=== PATIENT | male | born 1980 | race Caucasian/White ===

== ENCOUNTER 2023-09-08 20:38 | Emergency (ER) | payer BC, SELFPAY ==
[2023-09-08 20:43] VITALS: BP 121/86; PULSE 111; RESP 20; TEMP 37.3; O2SAT 97; BMI 26.7
--- NOTE | 2023-09-08 21:09 | CT_ITS ---
Final Report Patient: SAVANA GONZALES [facility] [place] Facility:?[facility] Patient ID:?[id number] Site Patient ID:?[id number]. Site :?[id number] Study:?CT Abdomen/Pelvis W/ 80CC ISOVUE 370-09/08/2023 9:35:38 PM Ordering Physician:ANTHONY Final Report: INDICATION: Diffuse abdominal pain. TECHNIQUE: CT abdomen and pelvis acquired with 80 cc Isovue 370 IV contrast. COMPARISON: None. FINDINGS: Lower chest: Unremarkable. Liver: Unremarkable. Normal in size and attenuation. No suspicious masses. Gallbladder and bile ducts: Cholecystectomy. Pancreas: Unremarkable. No mass or inflammation. Spleen: Few splenic calcifications.. Normal in size. No masses. Adrenal glands: Unremarkable. No nodules. Kidneys: Multiple left-sided simple renal sinus cysts. Small 4 millimeter nonobstructing left renal stone. Additional punctate nonobstructing right renal stone. No suspicious masses, or hydronephrosis. GI tract: Mild sigmoid colonic and rectal wall thickening accentuated by nondistention. Normal in caliber. No sign of mass or inflammation. Normal appendix. Vasculature: Abdominal aorta is normal in caliber. Mesenteric arteries are patent. Lymph nodes: No lymphadenopathy. Peritoneum/Abdominal Wall: Tiny fat containing umbilical hernia. No sign of mass or infiltration. No free air or significant free fluid. Pelvis: Unremarkable. Bones: Unremarkable for age. IMPRESSION: Mild sigmoid colonic and rectal wall thickening accentuated by nondistention. Low-grade proctocolitis not excluded. Otherwise, no acute intra-abdominal/pelvic abnormality. Please note that all CT scans at this facility use dose modulation, iterative reconstruction, and/or weight-based dosing when appropriate to reduce radiation dose to as low as reasonably achievable. Dictated by Anthony Patel MD @ 09/08/2023 9:41:48 PM (Electronic Signature)
[2023-09-08] MEDS: ONDANSETRON 2 MG/ML inj 4 MG IVP (21:30)
[2023-09-08] MEDS: LACTATED RINGERS 1000 ML 1,000 ML IV (21:30)
[2023-09-08] MEDS: MORPHINE 4 MG/ML INJ IVP (21:30)
--- NOTE | 2023-09-08 21:30 | ED_ITS ---
HPI - Nausea/Vomiting/Diarrhea General Date Seen: 09/08/23 Chief complaint: Nausea/Vomiting Stated complaint: Vomiting, diarhea, weakness Time Seen by Provider: 09/08/23 20:53 Source: patient Mode of arrival: ambulatory Limitations: no limitations History of Present Illness HPI Narrative: Patient is a 43-year-old male with no pertinent medical problems presenting to the emergency department for nausea, vomiting, diarrhea. States symptoms started yesterday around 14:00. Since then he has had over 30 episodes of watery diarrhea he states. Has also been vomiting quite a bit. Has not been able to keep anything down. He states he started to feel dehydrated. Went to urgent care today at 14:00 was given a L of fluids and discharged home with Zofran. He was still feeling 2nd to that was unable to take the Zofran without vomiting so he came to the emergency department. Denies ever having symptoms like this. Denies any history of C diff. Has had no recent antibiotic use. No recent travel. Denies fevers, chills, chest pain, shortness of breath, numbness. Feels fatigued. Does have diffuse abdominal pain of see says started after all the vomiting. Related Data Previous Rx's Medication Instructions Recorded ondansetron 4 mg disintegrating 4 mg PO Q6H PRN nausea and 09/08/23 tablet vomiting #30 tabs Allergies Allergy/AdvReac Type Severity Reaction Status Date / Time shellfish Allergy Severe Uncoded 09/08/23 21:37 Review of Systems Status of ROS: Reports: 10 or more systems reviewed and unremarkable except as noted in History and below Exam Narrative: Exam Narrative: Const: Well-nourished, Well-developed, in moderate distress Eyes: PERRL, no conjunctival injection, and symmetrical lids HENT: Atraumatic external nose and ears. Moist mucous membranes. Neck: Symmetric, trachea midline, No thyromegaly. CVS: RRR, No murmurs or gallops. Peripheral pulses 2+ and equal in all extre mities RESP: Unlabored respiratory effort. Clear to auscultation bilaterally. GI: Diffuse mild abdominal tenderness, Nondistended, No rebound or guarding. MSK:Extremities w/o deformity, Normal Active ROM Skin: Warm, Dry. No rashes or lesions. Neuro: Normal Muscle tone, No focal neurological deficits. Psych: Awake, Alert, & Oriented x3. Appropriate mood and affect. Const: Vital Signs, click to edit/add: Vital Signs - 24 hr 09/08/23 20:43 Temperature 99.1 F Pulse Rate [Pulse Oximeter] 111 H Respiratory Rate 20 Blood Pressure [Ri ght Upper Arm] 121/86 Pulse Oximetry 97 Oxygen Delivery Me thod Room Air Course Vital Signs Vital signs: Initial Vital Signs Temperature 99.1 F 09/08/23 20:43 Temperature Source Temporal Artery Scan 09/08/23 20:43 Pulse Rate 111 H 09/08/23 20:43 Respiratory Rate 20 09/08/23 20:43 Blood Pressure 121/86 09/08/23 20:43 Blood Pressure Mean 97 09/08/23 20:43 Blood Pressure Position Sitting 09/08/23 20:43 Pulse Oximetry 97 09/08/23 20:43 Oxygen Delivery Method Room Air 09/08/23 20:43 Vital Signs Temperature 99.1 F 09/08/23 20:43 Pulse Rate 111 H 09/08/23 20:43 Respiratory Rate 20 09/08/23 20:43 Blood Pressure 121/86 09/08/23 20:43 Pulse Oximetry 97 09/08/23 20:43 Oxygen Delivery Method Room Air 09/08/23 20:43 Temperature 99.1 F 09/08/23 20:43 Pulse Rate 111 H 09/08/23 20:43 Respiratory Rate 20 09/08/23 20:43 Blood Pressure 121/86 09/08/23 20:43 Pulse Oximetry 97 09/08/23 20:43 Oxygen Delivery Method Room Air 09/08/23 20:43 MDM - Nausea/Vomiting/Diarrhea MDM Narrative Medical decision making narrative: Patient is a 43-year-old male presenting to the emergency department for nausea/vomiting/diarrhea. No history of C diff. we will test him for C diff due to the amount of episodes of watery diarrhea he has had. Does state he has been going so often he has noticed some blood in his stool now. Also given 1 L fluids and some morphine for pain and Zofran for nausea. Lipase ordered to look for signs of pancreatitis. CBCs, CMP, lactate, urinalysis, COVID/flu/RSV test ordered. Will also order CT scan of the abdomen and pelvis Patient's lab work returned showing no concerning abnormalities. COVID/flu/RSV test is negative. CT scan of the abdomen pelvis was done reviewed by myself and the radiologist shows mild sigmoid colonic and rectal wall thickening but no distension. Possibly low-grade proctocolitis. No other acute intra-abdominal or pelvic abnormalities. Heart rate has improved. His C diff test came back negative. Patient appears stable at this time. Symptoms are most likely viral colitis. He will be discharged home. Lab Data Labs: Lab Results 09/08/23 09/08/23 09/08/23 Range/Units 20:51 21:27 22:32 WBC 8.62 (4.50-11.00) K/uL RBC 5.12 (4.30-5.90) m/uL Hgb 16.1 (13.5-17.5) gm/dL Hct 45.9 (37.0-53.0) % MCV 90 (80-100) fL MCH 31 (26-34) pg MCHC 35 (32-36) gm/dL RDW Coeff of Alonso 11.7 (11.5-15.5) % Plt Count 245 (140-440) K/uL Neut % (Auto) 82.5 H (42.0-72.0) % Lymph % (Auto) 12.9 L (20-44) % [place] % (Auto) 3.9 (0.0-11.0) % Eos % (Auto) 0.3 (0.0-7.0) % Baso % (Auto) 0.2 (0.0-3.0) % Neut # (Auto) 7.10 H (1.7-7.0) K/uL Lymph # (Auto) 1.10 (0.90-2.90) K/uL [place] # (Auto) 0.30 (0.00-0.90) K/UL Eos # (Auto) 0.03 (0.00-0.50) K/uL Baso # (Auto) 0.02 (0.00-0.30) K/uL Abs Immat Gran (auto) 0.02 (0.00-0.30) K/uL Imm/Tot Granulo (auto) 0.2 % Sodium 137 (135-149) mmol/L Potassium 3.6 (3.6-5.1) mmol/L Chloride 107 (96-114) mmol/L Carbon Dioxide 20 (20-32) mmol/L Anion Gap 10 (7-15) mEq/L BUN 13 (5-24) mg/dL Creatinine 0.9 (0.5-1.5) mg/dL Estimated Creat Clear 107.02 Estimated GFR 107 ml/min Glucose 117 H (60-115) mg/dL Lactate 0.9 (0.5-1.9) mmol/L Calcium 8.5 (8.4-10.6) mg/dL Total Bilirubin 1.6 H (0.1-1.5) mg/dL AST 23 (12-35) U/L ALT 40 (4-50) U/L Alkaline Phosphatase 61 (40-150) U/L Total Protein 7.2 (6.0-8.3) g/dL Albumin 4.0 (3.3-5.0) g/dL Lipase 29 (23-300) U/L Stl C. diff Tox B Gene Negative (Negative) Stl C. diff [id number] Presumptive Negative (Negative) SARS-CoV-2 (PCR) Negative SARS-CoV-2 (Negative) Influenza Type A (PCR) Negative PCR FLU A (Negative) Influenza Type B (PCR) Negative PCR FLU B (Negative) RSV (PCR) Negative PCR RSV (Negative) Imaging Data CT scan abdomen pelvis: Radiologist's impression: Mild sigmoid colonic and rectal wall thickening accentuated by nondistention. Low-grade proctocolitis not excluded. Otherwise, no acute intra-abdominal/pelvic abnormality. Please note that all CT scans at this facility use dose modulation, iterative reconstruction, and/or weight-based dosing when appropriate to reduce radiation dose to as low as reasonably achievable. Dictated by Anthony Patel MD @ 09/08/2023 9:41:48 PM Discharge Plan Discharge Clinical Impression: Gastroenteritis and colitis, viral Patient Disposition: Home, Self-Care Condition: Improved Instructions: Acute Nausea and Vomiting (DC), Acute Diarrhea (ED) Additional Instructions: Make she take the Zofran as soon as he started feeling nauseated. This appears to be viral in nature and will need to pass on its own. Stay well hydrated. Return to emergency department for new or worsening symptoms Prescriptions: No Action ondansetron 4 mg tablet,disintegrating 4 mg PO Q6H PRN (Reason: nausea and vomiting) Qty: 30 0RF Follow Up/Referrals: Provider,Not a Local [Primary Care Provider] - Stand Alone Forms: MyHealth Info Instructions
[2023-09-08 21:34] LABS: PCR FLU A Negative PCR FLU A (Negative); PCR FLU B Negative PCR FLU B (Negative); PCR RSV Negative PCR RSV (Negative); SARS PCR* Negative SARS-CoV-2 (Negative)
[2023-09-08 21:37] LABS: Basophils Absolute Auto 0.02 K/uL (0.00-0.30); Basophils Percent Auto 0.2 % (0.0-3.0); Eosinophils Absolute Auto 0.03 K/uL (0.00-0.50); Eosinophils Percent Auto 0.3 % (0.0-7.0); Hematocrit 45.9 % (37.0-53.0); Hemoglobin* 16.1 gm/dL (13.5-17.5); Immature Granulocytes Abs Auto 0.02 K/uL (0.00-0.30); Immature Granulocytes Pct Auto 0.2 %; Lymphocytes Percent Auto 12.9 % (20-44); Mean Corpuscular HGB Conc 35 gm/dL (32-36); Mean Corpuscular Hemoglobin 31 pg (26-34); Mean Corpuscular Volume 90 fL (80-100); Monocytes Percent Auto 3.9 % (0.0-11.0); Neutrophils Percent Auto 82.5 % (42.0-72.0); Platelet Count* 245 K/uL (140-440); RDW Coefficient of Variation % 11.7 % (11.5-15.5); Red Blood Count 5.12 m/uL (4.30-5.90); White Blood Count* 8.62 K/uL (4.50-11.00)
[2023-09-08 21:38] LABS: Lactate* 0.9 mmol/L (0.5-1.9)
[2023-09-08 21:42] LABS: Slide Review Reflex No
[2023-09-08 21:57] LABS: Chloride* 107 mmol/L (96-114); Potassium* 3.6 mmol/L (3.6-5.1); Sodium* 137 mmol/L (135-149)
[2023-09-08 21:59] LABS: Creatinine* 0.9 mg/dL (0.5-1.5); Est. Creatinine Clearance* 107.02; Estimated Glomerular Filt Rate 107 ml/min
[2023-09-08 22:00] LABS: Alanine Aminotransferase* 40 U/L (4-50); Alkaline Phosphatase* 61 U/L (40-150); Anion Gap 10 mEq/L (7-15); Aspartate Amino Transferase* 23 U/L (12-35); Bilirubin Total* 1.6 mg/dL (0.1-1.5); Blood Urea Nitrogen* 13 mg/dL (5-24); Carbon Dioxide* 20 mmol/L (20-32); Glucose* 117 mg/dL (60-115); Lipase* 29 U/L (23-300); Total Protein* 7.2 g/dL (6.0-8.3)
[2023-09-08 22:01] LABS: Calcium* 8.5 mg/dL (8.4-10.6)
[2023-09-08 22:43] LABS: Appearance Urine Clear (Clear); Bilirubin Urine Negative (Negative); Blood Urine Trace-intact (Negative); Color Urine Yellow (Yellow); Glucose Urine Negative (Negative); Ketones Urine Negative (Negative); Leukocyte Esterase Urine Negative (Negative); Nitrite Urine Negative (Negative); Protein Urine Negative (Negative); Urobilinogen Urine 0.2 (0.2-1.0); pH Urine 6.5 (5.0-8.5)
[2023-09-08 23:30] LABS: C.Difficile Negative (Negative)
[2023-09-08 23:41] LABS: CDIFFEPI 027 Presumptive Negative (Negative)
[2023-09-09 00:14] LABS: RBC Urine 0-2 (0-2); Squamous Epithelial Cell Urine Few (None-Few); WBC Urine 0-2 (0-5)
== END 2023-09-08 23:59 | disposition home or self-care (01) ==
PROVIDERS: Family Medicine; Emergency Provider Student in an Organized Health Care Education/Training Program
DX: K52.9 Noninfective gastroenteritis and colitis, unspecified (principal)
CPT/HCPCS: 36415; 74177; 80053; 81001; 83605; 83690; 85025; 87493; 87631; 99283; 99284; J2270; J2405; J7120; Q9967

== ENCOUNTER 2024-06-11 20:15 | Emergency (ER) | payer OTHER, BC, SELFPAY ==
[2024-06-11 20:23] VITALS: BP 156/103; PULSE 96; RESP 16; TEMP 37; O2SAT 98; BMI 27.3
--- NOTE | 2024-06-11 20:33 | ED_ITS ---
HPI - General Adult General Date Seen: 06/11/24 Chief complaint: Abdominal Pain Stated complaint: possible hernia Time Seen by Provider: 06/11/24 20:25 History of Present Illness HPI narrative: This is a 44-year-old generally healthy male presenting to the ER today with left groin pain. He started having pain yesterday while bending down in his shower he started experiencing a achy burning pain in his left groin. When bending over he felt apop has since then has felt a pop and a bulge in that area. He was able to laid down in bed and was able to push on that area and felt the bulge in his groin slide back in. Since then he has been having some achy burning pain in the groin and whenever he is up and around he feels a bulge in the groin. He has been able to slide it back and when he lays down but he can slide and while he is standing up. He is not having any fever. No vomiting. Bowel movements have been normal. Urination normal. No pain down into the testicle but sometimes the pain radiates from the groin down into the medial aspect of the left thigh and sometimes it radiates up into the left lower quadrant. No flank pain. Related Data Previous Rx's ?Medication ?Instructions ?Recorded ondansetron 4 mg disintegrating 4 mg PO Q6H PRN nausea and 09/08/23 tablet vomiting #30 tabs Allergies Allergy/AdvReac Type Severity Reaction Status Date / Time shellfish Allergy Severe Uncoded 09/08/23 21:37 PFSH PFSH Social History Non-prescribed substance use: denies use Exam Narrative: Exam Narrative: Constitutional: Appears well-developed and well-nourished. Alert. Conversant. Non toxic. HENT: Head: Atraumatic. Nose: Nose normal. Mouth/Throat: Oral mucosa is clear and moist. no trismus. Eyes: Conjunctivae normal. EOM normal. Pupils equal, round, and reactive to light. No scleral icterus. Neck: Normal range of motion. Neck supple. No tracheal deviation present. Cardiovascular: Normal rate, regular rhythm. No gallop. No friction rub. No murmur heard. Symmetric radial artery pulses Pulmonary/Chest: Effort normal. No stridor. No respiratory distress. No wheezes. No rales. No rhonchi Abdominal: Soft. Bowel sounds normal. No distension. No mass. No tenderness. No rebound. No guarding. : Normal uncircumcised penis. Normal testicles and scrotum. No testicular pain. No palpable inguinal adenopathy. With the patient supine I do not palpate any bulging hernia in the left inguinal canal. I had the patient stand up and this did create a visible and palpable bulging hernia and left inguinal canal. I the patient repositioned his to supine and we were able to gently manipulate the hernia back into the abdomen. The visible and palpable bulge resolved. Musculoskeletal: RUE: Normal range of motion. No tenderness. No deformity LUE: Normal range of motion. No tenderness. No deformity RLE: Normal range of motion. No edema. No tenderness. No deformity LLE: Normal range of motion. No edema. No tenderness. No deformity Lymph: No inguinal adenopathy. Neurological: Alert and oriented to person, place, and time. Normal strength. CN II-VII intact. No sensory deficit. GCS eye subscore is 4. GCS verbal subscore is 5. GCS motor subscore is 6. Normal coordination Skin: Skin is warm and dry. No rash noted. No pallor. Normal capillary refill. Psychiatric: Normal mood. Normal affect. Const: Vital Signs, click to edit/add: Vital Signs - 24 hr 06/11/24 20:23 Temperature 98.6 F Pulse Rate [Pulse Oximeter] 96 Respiratory Rate 16 Blood Pressure [Le ft Upper Arm] 156/103 H Pulse Oximetry 98 Oxygen Delivery Me thod Room Air Course Vital Signs Vital signs: Initial Vital Signs Temperature 98.6 F 06/11/24 20:23 Temperature Source Temporal Artery Scan 06/11/24 20:23 Pulse Rate 96 06/11/24 20:23 Respiratory Rate 16 06/11/24 20:23 Blood Pressure 156/103 H 06/11/24 20:23 Blood Pressure Mean 120 H 06/11/24 20:23 Blood Pressure Position Sitting 06/11/24 20:23 Pulse Oximetry 98 06/11/24 20:23 Oxygen Delivery Method Room Air 06/11/24 20:23 Vital Signs Temperature 98.6 F 06/11/24 20:23 Pulse Rate 96 06/11/24 20:23 Respiratory Rate 16 06/11/24 20:23 Blood Pressure 156/103 H 06/11/24 20:23 Pulse Oximetry 98 06/11/24 20:23 Oxygen Delivery Method Room Air 06/11/24 20:23 Temperature 98.6 F 06/11/24 20:23 Pulse Rate 96 06/11/24 20:23 Respiratory Rate 16 06/11/24 20:23 Blood Pressure 156/103 H 06/11/24 20:23 Pulse Oximetry 98 06/11/24 20:23 Oxygen Delivery Method Room Air 06/11/24 20:23 Medical Decision Making MDM Narrative Medical decision making narrative: Very pleasant 44-year-old male presenting to the ER today with left groin pain that started yesterday while he was bending over in the shower. He gives a history highly suggestive for an inguinal hernia in that area. Physical exam also confirms the presence of a lack wiggle hernia. Fortunately this is a sliding hernia. No evidence for incarceration, obstruction, or other immediate surgical emergency. Differential is broad. At this point I do not see any evidence for testicular pathology such as scrotal abscess, testicular torsion, epididymitis, orchitis. He is not having any pain through to the flank or other symptoms to suggest kidney stone. No signs of limb ischemia suggest an acute vascular catastrophe involving the left iliac artery, hematoma. At this time, I do not think he requires laboratory workup or CT imaging. I had a detailed discussion about the inguinal hernia and the potential complications with the patient and her . We carefully reviewed precautions for ER return and the indication for potential emergent surgical conditions. Patient will follow-up outpatient with surgery Clinic as soon as possible for evaluation and likely surgical repair. Discharge Plan Discharge Clinical Impression: Hernia, inguinal, left Instructions: Inguinal Hernia (ED) Additional Instructions: As we discussed, return to the ER right away if you have any concerns- especially if you experience worsening pain, generalized abdominal pain, vomiting, or if you have a painful lump that you cannot get to go away. Please follow-up with the [facility] surgery clinic as soon as you are able. Call the clinic tomorrow morning to arrange an ER follow-up appointment. Call [phone] to speak with the clinic schedulers. Tell the operations scheduler that you need an ER follow-up visit for a sliding left inguinal hernia. You can tell them that you were in the ER and that we did not find incarceration or obstruct ion tonight. Prescriptions: No Action ondansetron 4 mg tablet,disintegrating 4 mg PO Q6H PRN (Reason: nausea and vomiting) Qty: 30 0RF Follow Up/Referrals: Provider,Not a Local [Primary Care Provider] - Stand Alone Forms: [employer] Info Instructions
== END 2024-06-11 21:22 | disposition home or self-care (01) ==
PROVIDERS: Emergency Provider Emergency Medicine
DX: K40.90 Unilateral inguinal hernia, without obstruction or gangrene, not specified as recurrent (principal)
CPT/HCPCS: 99282; 99283

== ENCOUNTER 2024-06-30 16:31 | Emergency (ER) | payer OTHER, BC, SELFPAY ==
[2024-06-30 16:34] VITALS: BP 166/101; PULSE 108; RESP 16; TEMP 36.7; O2SAT 99; BMI 26.5
--- NOTE | 2024-06-30 17:05 | ED.GENADULT ---
HPI - General Adult General Date Seen: 06/30/24 Chief complaint: Abdominal Pain Stated complaint: blood in stool Time Seen by Provider: 06/30/24 16:34 Source: patient History of Present Illness HPI narrative: Patient is a 44-year-old male who underwent hernia surgery a week ago at [facility]. He had some constipation postoperatively but says he was given medication which relieved that. He says he normally has a bowel movement 2 or 3 times a day. For the past 3 days, he has noted bright red blood usually with 2 of the 3 bowel movements. He does not have any abdominal pain, has not had vomiting. He is eating okay. He has not had rectal pain. He has not had diarrhea or black stools. No fevers or systemic complaints. He says he talked to his surgeon who recommended that he be seen in the ER. He has had normal colonoscopies prior to this. Related Data Home Medications ?Medication ?Instructions ?Recorded ?Confirmed epinephrine 0.3 mg/0.3 mL IM 06/30/24 injection, auto-injector Previous Rx's ?Medication ?Instructions ?Recorded ondansetron 4 mg disintegrating 4 mg PO Q6H PRN nausea and 09/08/23 tablet vomiting #30 tabs Allergies Allergy/AdvReac Type Severity Reaction Status Date / Time Iodinated Contrast Media Allergy Unknown Verified 06/30/24 16:40 shellfish Allergy Severe Uncoded 09/08/23 21:37 Review of Systems Status of ROS: Reports: 10 or more systems reviewed and unremarkable except as noted in History and below [facility] Social History Non-prescribed substance use: denies use Exam Narrative: Exam Narrative: Vital signs reviewed In general, alert, nontoxic Head: Normocephalic, atraumatic. Eyes: Sclera clear. Pupils equal and reactive. ENT: Mucous membranes moist. Neck: Supple without adenopathy. Heart: Regular rate and rhythm without murmur. Lungs: Clear. No increased work of breathing, crackles or wheezes. Abdomen: Soft, nondistended. Incisions are well healed. No surrounding erythema, abdomen is nontender to palpation. Rectal: No large external hemorrhoids, no visible fissure. No masses. Clean glove without evidence of blood or melena. Extremities: Well perfused, pulses intact. No significant edema. Neurologic: Alert, conversant. Speech fluent, face symmetric. Moves all extremities equally. Skin: Warm, dry well perfused. Affect: Normal. Const: Vital Signs, click to edit/add: Vital Signs - 24 hr 06/30/24 16:34 06/30/24 17:12 06/30/24 18:00 Temperature 98.1 F Pulse Rate 85 Pulse Rate [Pulse Oximeter] 108 H 97 Respiratory Rate 16 Blood Pressure Blood Pressure [Ri ght Upper Arm] 166/101 H Pulse Oximetry 99 98 98 Oxygen Delivery Me thod Room Air Room Air 06/30/24 18:11 Temperature Pulse Rate Pulse Rate [Pulse Oximeter] Respiratory Rate Blood Pressure 138/79 Blood Pressure [Ri ght Upper Arm] Pulse Oximetry Oxygen Delivery Me thod Documenting provider has reviewed patient's vital signs: yes Course Course ED Course: I did send a sample for fecal occult testing. I do not see any visible blood at this time. His abdominal exam is benign and he does not give a history that is suggestive of ischemic bowel or obstruction. I have a page out to the patient's surgery clinic to determine whether there was something particular about his surgery that might make them more concerned in terms of this bleeding. Labs are pending. He is not anticoagulated. I spoke with the on-call surgery with [facility] the [place] [facility]. He did not have any concerns based on the operative note that the bright red blood per rectum is related to the patient's surgery. Did not feel imaging was necessary. Labs are reassuring, his hemoglobin is 14.6, white count is normal, lactate normal, CRP less than 0.5 and metabolic panel is normal. Fecal occult blood was positive. I discussed all this with the patient and his at length. I have tried to reassure him that I do not have any evidence at this time that his symptoms represent an intestinal perforation which was his primary concern. We talked about symptoms such as significant abdominal pain, vomiting, fever, as being symptoms that I would want to re-evaluate him for. He has an appointment on the with his surgeon and I have encouraged him to keep that appointment. Discussed that they may recommend repeat colonoscopy. Reviewed reasons to return as above or for heavy bleeding. He is comfortable with discharge. Vital Signs Vital signs: Initial Vital Signs Temperature 98.1 F 06/30/24 16:34 Temperature Source Temporal Artery Scan 06/30/24 16:34 Pulse Rate 108 H 06/30/24 16:34 Respiratory Rate 16 06/30/24 16:34 Blood Pressure 166/101 H 06/30/24 16:34 Blood Pressure Mean 122 H 06/30/24 16:34 Blood Pressure Position Sitting 06/30/24 16:34 Pulse Oximetry 99 06/30/24 16:34 Oxygen Delivery Method Room Air 06/30/24 16:34 Vital Signs Temperature 98.1 F 06/30/24 16:34 Pulse Rate 108 H 06/30/24 16:34 Respiratory Rate 16 06/30/24 16:34 Blood Pressure 166/101 H 06/30/24 16:34 Pulse Oximetry 99 06/30/24 16:34 Oxygen Delivery Method Room Air 06/30/24 16:34 Temperature 98.1 F 06/30/24 16:34 Pulse Rate 85 06/30/24 18:00 Respiratory Rate 16 06/30/24 16:34 Blood Pressure 138/79 06/30/24 18:11 Pulse Oximetry 98 06/30/24 18:00 Oxygen Delivery Method Room Air 06/30/24 17:12 Medical Decision Making Lab Data Labs: Lab Results 06/30/24 Range/Units 17:00 WBC 7.60 (4.50-11.00) K/uL RBC 4.70 (4.30-5.90) m/uL Hgb 14.6 (13.5-17.5) gm/dL Hct 42.7 (37.0-53.0) % MCV 91 (80-100) fL MCH 31 (26-34) pg MCHC 34 (32-36) gm/dL RDW Coeff of Alonso 11.7 (11.5-15.5) % Plt Count 239 (140-440) K/uL Neut % (Auto) 62.5 (42.0-72.0) % Lymph % (Auto) 26.1 (20-44) % [place] % (Auto) 6.1 (0.0-11.0) % Eos % (Auto) 3.8 (0.0-7.0) % Baso % (Auto) 0.7 (0.0-3.0) % Neut # (Auto) 4.76 (1.7-7.0) K/uL Lymph # (Auto) 1.98 (0.90-2.90) K/uL [place] # (Auto) 0.50 (0.00-0.90) K/UL Eos # (Auto) 0.29 (0.00-0.50) K/uL Baso # (Auto) 0.05 (0.00-0.30) K/uL Abs Immat Gran (auto) 0.06 (0.00-0.30) K/uL Imm/Tot Granulo (auto) 0.8 % Sodium 137 (135-149) mmol/L Potassium 3.9 (3.6-5.1) mmol/L Chloride 107 (96-114) mmol/L Carbon Dioxide 23 (20-32) mmol/L Anion Gap 7 (7-15) mEq/L BUN 16 (5-24) mg/dL Creatinine 0.8 (0.5-1.5) mg/dL Estimated Creat Clear 119.13 Estimated GFR 111 ml/min Glucose 99 (60-115) mg/dL Lactate 0.9 (0.5-1.9) mmol/L Calcium 8.4 (8.4-10.6) mg/dL C-Reactive Protein < 0.5 L (0.5-1.0) mg/dL Stool Occult Blood Positive (Negative) Discharge Plan Discharge Clinical Impression: BRBPR (bright red blood per rectum) Patient Disposition: Home, Self-Care Condition: Stable Instructions: Rectal Bleeding (ED) Additional Instructions: Follow up with general surgery as recommended. They may recommend a repeat colonoscopy to further evaluate the bleeding you are having. I spoke with the prestressed concrete laborer surgeon and they are not concerned that this is related to your surgery. If you have new symptoms such as fever, vomiting, severe abdominal pain or more frequent bloody stools, return to the ER. Prescriptions: No Action ondansetron 4 mg tablet,disintegrating 4 mg PO Q6H PRN (Reason: nausea and vomiting) Qty: 30 0RF epinephrine 0.3 mg/0.3 mL auto-injector IM Follow Up/Referrals: Provider,Not a Local [Primary Care Provider] - Stand Alone Forms: MyHealth Info Instructions
[2024-06-30 17:07] LABS: Lactate Sepsis w/Reflex* 0.9 mmol/L (0.5-1.9)
[2024-06-30 17:12] VITALS: PULSE 97; O2SAT 98
[2024-06-30 17:12] LABS: Basophils Absolute Auto 0.05 K/uL (0.00-0.30); Basophils Percent Auto 0.7 % (0.0-3.0); Eosinophils Absolute Auto 0.29 K/uL (0.00-0.50); Eosinophils Percent Auto 3.8 % (0.0-7.0); Hematocrit 42.7 % (37.0-53.0); Hemoglobin* 14.6 gm/dL (13.5-17.5); Immature Granulocytes Abs Auto 0.06 K/uL (0.00-0.30); Immature Granulocytes Pct Auto 0.8 %; Lymphocytes Absolute Auto 1.98 K/uL (0.90-2.90); Lymphocytes Percent Auto 26.1 % (20-44); Mean Corpuscular HGB Conc 34 gm/dL (32-36); Mean Corpuscular Hemoglobin 31 pg (26-34); Mean Corpuscular Volume 91 fL (80-100); Monocytes Percent Auto 6.1 % (0.0-11.0); Neutrophils Absolute Auto 4.76 K/uL (1.7-7.0); Neutrophils Percent Auto 62.5 % (42.0-72.0); Platelet Count* 239 K/uL (140-440); RDW Coefficient of Variation % 11.7 % (11.5-15.5)
[2024-06-30 17:23] LABS: Slide Review Reflex No
[2024-06-30 17:27] LABS: Fecal Occult Blood* Positive (Negative)
[2024-06-30 17:33] LABS: Chloride* 107 mmol/L (96-114); Potassium* 3.9 mmol/L (3.6-5.1); Sodium* 137 mmol/L (135-149)
[2024-06-30 17:36] LABS: Creatinine* 0.8 mg/dL (0.5-1.5); Est. Creatinine Clearance* 119.13; Estimated Glomerular Filt Rate 111 ml/min
[2024-06-30 17:37] LABS: Anion Gap 7 mEq/L (7-15); Blood Urea Nitrogen* 16 mg/dL (5-24); Calcium* 8.4 mg/dL (8.4-10.6); Carbon Dioxide* 23 mmol/L (20-32); Glucose* 99 mg/dL (60-115)
[2024-06-30 17:45] LABS: C Reactive Protein* < 0.5 mg/dL (0.5-1.0)
[2024-06-30 18:00] VITALS: PULSE 85; O2SAT 98
[2024-06-30 18:11] VITALS: BP 138/79
== END 2024-06-30 18:14 | disposition home or self-care (01) ==
PROVIDERS: Emergency Provider Emergency Medicine
DX: K62.5 Hemorrhage of anus and rectum (principal)
CPT/HCPCS: 36415; 80048; 82270; 83605; 85025; 86140; 99284

== ENCOUNTER 2024-09-28 12:06 | Emergency (ER) | payer OTHER, BC, SELFPAY ==
--- OUTSIDE RECORDS SUMMARY | 2024-09-28 12:09 | XMS_ITS | Encounter Summary ---
Author Organization [facility] Address [address] [place] [address] Care Team Providers Care Sales Recruiting Coordinator Name Role Phone Jhoan Vasquez MD Primary Care Provider [phone] Encounter Details Date Type Department Care Team (Late st Contact Info) Description 03/11/2017 Correspondence [facility] Radiology [address] [place] [id number] Radiology, Provider MRI SAFETY SHEET AND COMPATIBILITY FORM Social History Tobacco Use Types Packs/Day Years Used Date Smoking Tobacco: Never Smokeless Tobacco: Never Comments:quit smoking 2000 Alcohol Use Standard Drinks/Week Comments No 0 (1 standard drink = 0.6 oz pur e alcohol) Sex and Gender Information Value Date Recorded Sex Assigned at Male 04/08/2021 1:19 PM CDT Legal Sex Male 5:49 AM CDT Gender Identity Male 04/08/2021 1:19 PM CDT Sexual Orientation Straight 04/08/2021 1: 19 PM CDT 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
--- OUTSIDE RECORDS SUMMARY | 2024-09-28 12:09 | XMS_ITS | Clinical Summary ---
Author Organization [employer] [facility] Address [address] [place] [id number] Care Team Providers Care Traffic Officer Name Role Phone Eboni Stapleton MD Primary Care Provider [phone] Allergies Active Allergy Reactions Criticality Noted Date Comments Iodinated Contrast Media Hives,Throat Swelling/Closing High 04/13/2020 Shellfish Containing Products Itching 08/05/2012 Itching in throat not severe per pt report Medications * This document contains information received from the source organization and may not represent a complete record from that organization. esomeprazole (NEXIUM) 40 mg capsule Take 1 capsule by mouth once daily before a meal. 30 capsule 11 08/24/19 13 Active ondansetron (ZOFRAN ODT) 8 mg disintegrating tabletIndications:G astroesophageal reflux disease, unspecified whether esophagitis present,Hx of cholecystectomy Place 1 Tablet (8 mg) on the tongue every 8 hours if needed for Nausea/Vomiting. 30 Tablet 1 03/30/20 24 Active EPINEPHrine (EPIPEN) 0.3 mg/0.3 mL auto-injectorIndica tions:Shellfish allergy Inject 0.3 mg intramuscular each time if needed for Allergic Reaction. 2 Each 2 03/30/20 24 Active ibuprofen-acetamino phen (AdviL Dual Action) 125-250 mg tab Take by mouth every 8 hours. Active traMADoL (ULTRAM) 50 mg tabletIndications:S /P hernia surgery Take 1 Tablet (50 mg) by mouth every 6 hours if needed for Pain. 10 Tablet 4 1:11 PM DIRECTOR EMPLOYEE SAF[employer]Y [employer] HE[employer] 06/23/20 24 Active sennosides-docusate (SENOKOT S) (8.6-50 mg) tabletIndications:S /P hernia surgery Take 1 Tablet by mouth 2 times daily if needed for Constipation. 20 Tablet 4 1:11 PM DIRECTOR EMPLOYEE [employer]AF[employer]Y [employer] HE[employer] 06/23/20 24 Active ibuprofen (ADVIL; MOTRIN) 600 mg tabletIndications:S /P hernia surgery Take 1 Tablet (600 mg) by mouth every 6 hours if needed for Pain. Maximum of 3200 mg in 24 hours. 30 Tablet 4 1:11 PM DIRECTOR EMPLOYEE [employer]AF[employer]Y [employer] HEALTH 06/23/20 24 Active acetaminophen (TYLENOL) 325 mg tabletIndications:S /P hernia surgery Take 2 Tablets (650 mg) by mouth every 6 hours. Max acetaminophen dose: 4000mg in 24 hrs. 30 Tablet 4 1:11 PM DIRECTOR EMPLOYEE [employer]AF[employer]Y [employer] HEALTH 06/23/20 24 Active Active Problems Problem Noted Date Diagnosed Date Bilateral inguinal hernia without obstruction or gangrene 06/23/2024 GERD (gastroesophageal reflux disease) 7 Hx of cholecystectomy 03/02/2017 Adenomatous polyp of colon 07/08/2016 Tear of medial meniscus of right knee 08/08/2015 Overview (08/08/2015): Initial surgery on Apr, 2015. Needs repear arthrosciopic surgery on 08/09/15. Dr Timi Bowman at [facility]. Encounters Date Type Department Care Team Description 09/13/2024 Telephone [facility] Surgery Clinic at [address] [address] Erendira Zimmer MD discuss letter 07/04/2024 11:45 AM DIRECTOR EMPLOYEE SAFETY AND HEALTH Office Visit [facility] General Surgery Clinic at [facility] [id number] [place] [address] Erendira Zimmer MD Surgical Followup (SP 06/23 robotic bilateral inguinal hernia repair with mesh) 07/03/2024 Travel 06/30/2024 Orders Only [facility] Scanner 1 scan: (1-Ord) [facility], MULTIPLE RESULTS, 06/30/2024 06/30/2024 Telephone [facility] General Surgery Clinic at [facility] [address] [place] [address] Erendira Zimmer MD post surgery concerns from Last 3 Months Immunizations Immunization Administration Dates Next Due COVID-19 vaccine ([employer] 30mcg/0.3mL) RAFAEL ZAMARRIPA 01/15/2021,12/25/2020 Hep B (Hepatitis B (Adult) R ecombinant Adjuvanted) 08/21/2022,07/20/2022 Influenza A (H1N1), Inactivated 08/20/2009 Influenza Virus, Unspecified 04/24/2016,05/12/20 12,04/03/2009 Influenza, IIV3 (Age >=3 years) 05/02/2012 Td (Age >=7 Years) 01/16/2008,12/25/2007 Tdap 02/17/2018 Family History Medical History Relation Name Comments Heart Disease Brother 4 38 Diabetes Brother 5 Hypertension Brother 6 Hyperlipidemia Brother 7 Diabetes Father Heart Disease Father Hyperlipidemia Father Hypertension Father Cancer-colon Maternal Grandmother GI Disease Mother Cancer-colon Paternal Aunt Diabetes Paternal Grandfather Heart Disease Paternal Grandfather Hyperlipidemia Paternal Grandfather Hypertension Paternal Grandfather Relation Name Status Comments Brother 1 Heart attack Brother 2 Alive Brother 3 Alive Brother 4 Brother 5 Brother 6 Brother 7 Father Bypass malfunct ion/internal bleeding Maternal Grandfather Maternal Grandmother Alive Mother Alive Paternal Aunt Paternal Grandfather Heart a ttack Paternal Grandmother Sister 1 Alive Sister 2 Alive Son 1 Alive Son 2 Alive Son 3 Alive Son 4 Alive Son 5 Alive Social History Tobacco Use Types Packs/Day Years Used Date Smoking Tobacco: Never Smokeless Tobacco: Never Tobacco Cessation:Counseling Given: Yes Alcohol Use Standard Drinks/Week Comments No 0 (1 standard drink = 0.6 oz pur e alcohol) PHQ-2 Answer Date Recorded PHQ-2 TOTAL SCORE 1 03/30/2024 Social Connections Answer Date Recorded Do you often feel lonely or isolated from those around you? 0 2024 Financial Resource Strain Answer Date R ecorded Difficulty of Paying Living Expenses 3 2024 Difficulty of Paying Living Expenses Not on file 2024 Food Insecurity Answer Date Recorded Do you worry your food will run out before you are able to buy more? 1 2024 Transportation Needs Answer Date Record ed Does lack of transportation keep you from medica l appointments? 1 2024 Does lack of transportation keep you from work, meetings or getting things that you need? 1 2024 Housing Stability Answer Date Recorded What is your housing situation today? 1 2024 Utilities Answer Date Recorded Do you have trouble paying f or utilities (for example, heat, electricity, water, phone)? 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 on file Not on file Not on file Obstetrics History Last Filed Vital Signs Vital Sign Reading Time Taken Comments Blood Pressure 136/78 07/04/2024 12:27 PM DIRECTOR EMPLOYEE [employer]Y [employer] HEALTH Pulse 106 07/04/2024 12:27 PM DIRECTOR EMPLOYEE [employer]Y [employer] HEALTH Temperature 37.1 C (98.8 F) 07/04/2024 11:52 AM DIRECTOR EMPLOYEE [employer]Y [employer] HEALTH Respiratory Rate 20 07/04/2024 11:52 AM DIRECTOR EMPLOYEE [employer] HEALTH Oxygen Saturation 97% 06/23/2024 12:45 PM DIRECTOR EMPLOYEE [employer] HEALTH Inhaled Oxygen Concentration - - Weight 84.4 kg (186 lb) 06/19/2024 9:02 AM DIRECTOR EMPLOYEE [employer]AF[employer]Y [employer] HEALTH Height 177.8 cm (5' 10) 06/13/2024 1:25 PM DIRECTOR EMPL[employer]EE [employer]AF[employer]Y [employer] HEALTH Body Mass Index 26.69 06/13/2024 1:25 PM DIRECTOR EMPLOYEE [employer]AFETY [employer] HEALTH Plan of Treatment Health Maintenance Due Date Last Done Comments HIV for age 15-65 1993 Hepatitis C screening for age 18-79 1996 COVID-19 vaccine series ( season) 2024 08/27/2021, 01/15/2021, 12/25/2020 Influenza Vaccine (#1) 2024 6, 05/12/2012, 05/02/2012, Additional history exists BMI (ht and wt on same day) for age 18+ 03/30/2025 03/30/2024, 02/04/2023, 10/23/2022, Additional history exists Depression screening for age 12+ 03/30/2025 03/30/2024, 10/23/2022, 10/21/2022, Additional history exists Colonoscopy through age 75 06/19/202606/19 [facility] Tetanus booster 02/18/2028 02/17/2018, 12/19, 12/25/2007 Lipids for age 45-75 03/30/2029 03/30/2024, 10/21/2022, 12/13/2020, Additional history exists Tdap Completed 02/17/2018 Pneumococcal series for age 6-49 Aged Out No longer eligible based on patient's age to complete this topic Medical Devices Implanted Type Area Operations Dispatcher Device Identifier Shelf Expiration Date Model / Serial / Lot Mesh Inguinal Lt [id number] 3-D Max Mid Xlg - [id number] Implanted:Qty: 1 on 06/23/2024 by Erendira Zimmer MD at [facility] Left: Inguinal [employer] 11/13/2028 [id number] / / [id number] Mesh Inguinal Rt [id number] 3-D Max Mid Xlg - [id number] Implanted:Qty: 1 on 06/23/2024 by Erendira Zimmer MD at [facility] Right: Inguinal [employer] 08/15/2028 [id number] / / [id number] Procedures Procedure Name Priority Date/Time Associated Diagnosis Comments SCAN-LABORATORY REPORT 06/30/2024 12:00 AM DIRECTOR EMPLOYEE SAFETY [employer] HEALTH LIPID PANEL W REFLEX MEASURED LDL Routine 03/30/2024 2:39 PM CDT Family history of ASCVD from Last 3 Months or Most Recently Relevant to Health Maintenance Results * SCAN-LABORATORY REPORT (06/30/2024 12:00 AM DIRECTOR EMPLOYEE SAFETY AND HEALTH) us Scanner OTHER Final Result * (ABNORMAL) LIPID PANEL W REFLEX MEASURED LDL (03/30/2024 2:39 PM CDT) CHOLESTEROL,TOTAL 134 100 - 199 mg/dL 03/31/2024 4:19 AM CDT [facility] Comment: Cholesterol, Total Reference Ranges Desirable <200 mg/dL Borderline 200-239 mg/dL High >=240 mg/dL TRIGLYCERIDES 85 <150 mg/dL 03/31/2024 4:19 AM CDT [facility] HDL CHOLESTEROL 38(L) >40 mg/dL 4:19 AM CDT [facility] NON-HDL CHOLESTEROL 96 <145 mg/dl 03/31/2024 4:19 AM CDT [facility] CHOL/HDL RATIO 3.53 <4.50 03/31/2024 4:19 AM CDT [facility] LDL CHOLESTEROL 79 <=130 mg/dL 03/31/2024 4:19 AM CDT [facility] VLDL CHOLESTEROL 17 <=30 mg/dL 03/31/2024 4:19 AM CDT [facility] PROVIDER ORDERED STATUS RANDOM 03/31/2024 4:19 AM T [facility] Blood BLOOD SPECIMEN / Unknown Venipuncture / Unknown 03/30/2024 2:39 PM CDT 03/30/2024 2:39 PM CDT us Eboni Stapleton MD CHEMISTRY Final Resul t [facility] [address] [place] [address], from Last 3 Months or Most Recently Relevant to Health Maintenance Insurance [facility] OF [place] [employer] WORKERS COMP Advance Directives * Full Code (Latest Code Status on File) Date Activated Date Inactivated Comments 06/23/2024 10:15 AM 06/23/2024 3:43 PM Question Answer Comments Code Status Discussion: Reviewed Preferences Care Teams Traffic Officer Relationship Specialty Start Date End Date Eboni Stapleton MD [address] [place] [address] PCP - General Family Practice 12/13/20
--- OUTSIDE RECORDS SUMMARY | 2024-09-28 12:09 | XMS_ITS | Encounter Summary ---
Author Organization [facility] Address [address], [place] [address] Care Team Providers Care Dairy Scientist Name Role Phone Jhoan Vasquez MD Primary Care Provider [phone] Encounter Details Date Type Department Care Team (Late st Contact Info) Description 11/05/2017 Correspondence [facility] [address] [place] [address] [place] [address] [place] [address] FMLA Social History Tobacco Use Types Packs/Day Years [...] on filedocumented in this encounter Care Teams Dairy Scientist Relationship Specialty [place] [address] [place], [place] [id number] PCP - General Family Practice 10/18/18 documented as of this encounter
--- OUTSIDE RECORDS SUMMARY | 2024-09-28 12:09 | XMS_ITS | Encounter Summary ---
Author Organization [facility] Address [address] [place] [address] Care Team Providers Care Field Human Resources Manager Name Role Phone Jhona Vasquez MD Primary Care Provider [phone] Encounter Details Date Type Department Care Team (Late st Contact Info) Description 08/13/2017 Correspondence External to External, Provider [place] [address] [facility] Social History Tobacco Use Types Packs/Day Years [...] on filedocumented in this encounter Care Teams Field Human Resources Manager Relationship Specialty [place] [address] [place] [address] PCP - General Family Practice 10/18/18 documented as of this encounter
--- OUTSIDE RECORDS SUMMARY | 2024-09-28 12:09 | XMS_ITS | Encounter Summary ---
Author Organization [facility] Address [address] [place] [address] Care Team Providers Care Wildlife Ecologist Name Role Phone Jhoan Vasquez MD Primary Care Provider [phone] Encounter Details Date Type Department Care Team (Late st Contact Info) Description 06/29/2016 Consent for Procedure/Treatme nt [facility] INFORMED CONSENT RECORD Social History Tobacco Use Types Packs/Day Years Used Date Smoking Tobacco: Never Alcohol Use Standard Drinks/Week Comments No 0 (1 standard drink = 0.6 oz pur e alcohol) Sex and Gender Information Value Date Recorded Sex Assigned at Male 04/08/2021 1:19 PM CDT Legal Sex Male 5:49 AM CDT Gender Identity Male 04/08/2021 1:19 PM CDT Sexual Orientation Straight 04/08/2021 1: 19 PM CDT documented as of this encounter Plan of Treatment Not on file documented as of this encounter Visit Diagnoses Not on filedocumented in this encounter Care Teams Wildlife Ecologist Relationship Specialty Start [place] [address] [place] [address] PCP - General Family Practice 10/18/18 documented as of this encounter
--- OUTSIDE RECORDS SUMMARY | 2024-09-28 12:09 | XMS_ITS | Clinical Summary ---
Author Organization [facility] Address [address] [place] [address] Care Team Providers Care Slot Floor Supervisor Name Role Phone Clinic, [facility] Primary Care Provider Allergies Active Allergy Reactions Criticality Noted Date Comments Shellfish-Derived Products Itching 3 Itching in throat not severe per pt report Medications Esomeprazole Magnesium (NEXIUM PO) Take 40 mg by mouth 08/24/2012 Active Resolved Problems Problem Noted Date Diagnosed Date Resolved Date Closed dislocation of shoulder 11/23/2007 12/21/2007 Overview (04/19/2015): Problem list name updated by automated process. Provider to review Immunizations Name Administration Dates Next Due Flu, Unspecified 04/03/2009 Influenza (H1N1) 08/20/2009 Influenza Vaccine, 6+MO IM ( QUADRIVALENT W/PRESERVATIVES) 05/12/2012 Td,adult,historic,unspecified 12/25/2007 Social History Tobacco Use Types Packs/Day Years Used Date Smoking Tobacco: Former Comments:rarely smokes Alcohol Use Standard Drinks/Week Comments Not Asked 0 (1 standard drink = 0.6 oz pur e alcohol) Adolescent Education Answer Date Record ed Getting School Help Needed Not on file 05/04 Sex and Gender Information Value Date Recorded Sex Assigned at Not on file Legal Sex Male 4:42 AM DISABILITY SPECIALIST Gender Identity Not on file Sexual Orientation Not on file Last Filed Vital Signs Vital Sign Reading Time Taken Comments Blood Pressure 126/74 02/07/2018 5:30 PM CDT Pulse 91 02/07/2018 3:13 PM CDT Temperature 36.7 C (98.1 F) 02/07/2018 3:13 PM CDT Respiratory Rate 12 02/07/2018 5:30 PM CDT Oxygen Saturation 95% 02/07/2018 5:30 PM CDT Inhaled Oxygen Concentration - - Weight 78 kg (172 lb) 07/30/2014 9:54 AM DISABILITY SPECIALIST Height 177.8 cm (5' 10) 07/04/2014 8:41 AM DISABILITY SPECIALIST Body Mass Index 24.68 07/04/2014 8:41 AM DISABILITY SPECIALIST Plan of Treatment Not on file Insurance [facility] Care Teams Slot Floor Supervisor Relationship Specialty Start Date End Date Clinic, [facility] [address] [place] [address] PCP - General 02/11/18
--- OUTSIDE RECORDS SUMMARY | 2024-09-28 12:09 | XMS_ITS | Clinical Summary ---
[facility] Address [address] [place] [address] Care Team Providers Care Skoog Operator Name Role Phone Jhoan Vasquez MD Primary Care Provider [phone] Source Comments You are receiving this document as you are listed as the primary care provider,follow-up provider, or the patient has been referred to you for consultation.This is in compliance with the Medicare andMedicaid EHR Incentive Program,which states Providers who transition their patient to another setting of careor provider of care or refers their patient to another provider of care shouldprovide summary care record for each transition of care or referral. [facility] Allergies Active Allergy Reactions Criticality Noted Date Comments Iodinated Contrast Media Hives,Throat Irritation High 04/13/2020 Shellfish-Derived Products Other, see comments 01/31/2016 itching lips, mouth, throat Medications Esomeprazole Magnesium (NEXIUM OR) Active naproxen (NAPROSYN) 500 MG tabletIndications :Abdominal pain, generalized TAKE 1 TABLET BY MOUTH TWICE DAILY WITH MEALS 60 Tablet 11/16/19 19 Active ondansetron (ZOFRAN ODT) 8 MG disintegrating tabletIndications :Nausea and vomiting, intractability of vomiting not specified, unspecified vomiting type Every 8 hours for nausea 30 Tablet 1 04/12/20 20 Active pantoprazole (PROTONIX) 20 MG tabletIndications :Abdominal pain, left lower quadrant Take 1 Tablet by mouth daily before breakfast. 30 Tablet 04/12/20 20 Active Additional Information Patient not taking.Reported on 06/19/2021 methylPREDNISolon e (MEDROL 21 TABLET DOSEPACK) 4 MG tablet Follow package directions 21 Tablet 04/13/20 Active Additional Information Patient not taking.Reported on 06/19/2021 EPINEPHrine (EPIPEN) 0.3 MG/0.3ML injection Inject 0.3 mL intramuscularly as needed. May repeat. 2 Each 04/13/20 20 Active diphenhydrAMINE (BENADRYL) 25 MG tablet Take 1 Tablet by mouth every 6 hours as needed for Itching. 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 08/18/2016 09/28/2016 Immunizations Immunization Administration Dates Next Due Flu Vac (3+ yrs) 05/12/2012,04/03/2009 H1n1 Miv Csl 3+ Yr (Injected) 08/20/2009 Influenza ([place] Only) (Flul aval Quad 0.5, 3+ yrs) 05/12/2012 Influenza IIV4 (Quadrivalent) 0.5mL (60401) 01/2016 Influenza, Unspecified Formulation 04/24/2016,,04/03/2009 Pfizer Monovalent 12+ Purple Top 08/27/2021,12/19,12/25/2020 Td 01/16/2008,01/16/2008,12/25/2007 Tdap 02/17/2018 Family History Medical History Relation Name Comments Coronary Artery Disease Father leth al myocardial infarct Diabetes, Type II Father and brothe r Hyperlipidemia Father Hypertension Father Coronary Artery Disease Brother 2 leth al myocardial infarct Relation Name Status Comments Father (Age 64) heart Mother Alive Brother 1 (Age 38) heart Brother 2 Maternal Grandfather (Age 76) Paternal Grandfather (Age 77) he art Paternal Grandmother (Age 76) ca ncer Social History Tobacco Use Types Packs/Day Years Used Date Smoking Tobacco: Former Smokeless Tobacco: Never Comments:quit smoking 2000 Alcohol Use Standard Drinks/Week Comments No 0 (1 standard drink = 0.6 oz pur e alcohol) PHQ-2 Answer Date Recorded PHQ-2 Score 0 08/27/2021 Sex and Gender Information Value Date Recorded Sex Assigned at Male 04/08/2021 1:19 PM CDT Legal Sex Male 5:49 AM CDT Gender Identity Male 04/08/2021 1:19 PM CDT Sexual Orientation Straight 04/08/2021 1: 19 PM CDT 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 Not on file Not on file Not on file Last Filed Vital Signs Vital Sign Reading Time Taken Comments Blood Pressure 134/89 06/19/2021 12:00 PM SALES STOCK ASSOCIATE Pulse 80 06/19/2021 12:00 PM SALES STOCK ASSOCIATE Temperature 36.4 C (97.5 F) 06/19/2021 11:46 AM SALES STOCK ASSOCIATE Respiratory Rate 16 06/19/2021 12:00 PM SALES STOCK ASSOCIATE Oxygen Saturation 100% 06/19/2021 12:00 PM SALES STOCK ASSOCIATE Inhaled Oxygen Concentration - - Weight 83.5 kg (184 lb) 06/19/2021 10:08 AM SALES STOCK ASSOCIATE Height 177.8 cm (5' 10) 06/19/2021 10:08 AM SALES STOCK ASSOCIATE Body Mass Index 26.4 06/19/2021 10:08 AM SALES STOCK ASSOCIATE Plan of Treatment Health Maintenance Due Date Last Done Comments Hep C Screening (Preventive Services) 1980 Tuberculosis Screening 1980 Adult Preventive Visit 1996 HepB (1) 1997 Cholesterol 02/17/2023 02/17/2018, 07/09/2016 COVID-19 Vaccine ( season) 2024 08/27/2021, 01/15/2021, 12/25/2020 Influenza (#1) 2024 04/24/2016, 1001/2016, 05/12/2012, Additional history exists Colonoscopy 06/19/2026 06/19/2021, 06/29/2016 DTaP/Tdap/Td (2 - Tdap) 02/18/2028 02/18/20 18, 01/16/2008, 01/16/2008, Additional history exists Zoster/Shingles (1 of 2) 2028 HIV Screening (Preventive Services) Completed 02/17/2018 HepA Aged Out No longer eligi ble based on patient's age to complete this topic Hib Aged Out No longer eligi ble based on patient's age to complete this topic IPV (Polio) Aged Out No longer eligi ble based on patient's age to complete this topic MCV4 Aged Out No longer eligi ble based on patient's age to complete this topic Meningococcal B Aged Out No longer el igible based on patient's age to complete this topic Pneumococcal Aged Out No longer eligi ble based on patient's age to complete this topic Procedures Procedure Name Priority Date/Time Associated Diagnosis Comments ENDOSCOPY, COLON, SCREENING/DIAGNOST IC Routine 06/19/2021 11:10 AM SALES STOCK ASSOCIATE Personal history of colonic polyps HIV 1/2 AG/AB 4TH GEN Routine 02/17/2018 9:01 AM CDT Routine adult health maintenance LIPID PANEL & DIRECT LDL (IF NEEDED) Routine 02/17/2018 9:01 AM CDT Heart palpitations from Last 3 Months or Most Recently Relevant to Health Maintenance Results * Endoscopy, colon, diagnostic (06/19/2021 11:10 AM SALES STOCK ASSOCIATE) Anatomical Region Laterality Modality Other 06/19/2021 11:1 0 AM SALES STOCK ASSOCIATE Narrative 06/19/2021 11:10 AM SALES STOCK ASSOCIATE Patient Name: Syed Alejandra Procedure Date: 06/19/2021 11:10 AM Date of : 1980 Admit Type: Outpatient Age: 41 Gender: Male Note Status: Finalized Attending MD: Laina Marrero MD Procedure: Colonoscopy Indications: High risk colon cancer surveillance: Personal history of colonic polyps Providers: Laina Marrero MD, Opal Dee RN Referring MD: Medicines: Propofol per Anesthesia Complications: No immediate complications. Procedure: After I obtained informed consent, the scope was passed under direct vision. Throughout the procedure, the patient's blood pressure, pulse, and oxygen saturations were monitored continuously. The [id number] was introduced through the anus and advanced to 5 cm into the ileum. The colonoscopy was performed without difficulty. The patient tolerated the procedure well. The quality of the bowel preparation was good. Findings: The perianal and digital rectal examinations were normal. The terminal ileum appeared normal. A 3 mm polyp was found in the hepatic flexure. The polyp was flat. The polyp was removed with a cold snare. Resection and retrieval were complete. The exam was otherwise without abnormality on direct and retroflexion views. Impression: - The examined portion of the ileum was normal. - One 3 mm polyp at the hepatic flexure, removed with a cold snare. Resected and retrieved. - The examination was otherwise normal on direct and retroflexion views. Recommendation: - Discharge patient to home. - Await pathology results. - Repeat colonoscopy for surveillance based on pathology results. Procedure Code(s): --- Professional --- 64274, Colonoscopy, flexible; with removal of tumor(s), polyp(s), or other lesion(s) by snare technique Diagnosis Code(s): --- Professional --- Z86.010, Personal history of colonic polyps K63.5, Polyp of colon CPT copyright 2019 [employer]. All rights reserved. The codes documented in this report are preliminary and upon workcell operator review may be revised to meet current compliance requirements. Laina Marrero MD 06/19/2021 11:44:02 AM This document has been electronically signed. Number of Addenda: 0 Note Initiated On: 06/19/2021 11:10 AM Endoscopy Report Procedure Note ProviderDaija MD - 06/19/2021 Patient Name: Syed Alejandra Procedure Date: 06/19/2021 11:10 AM Date of : 1980 Admit Type: Outpatient Age: 41 Gender: Male Note Status: Finalized Attending MD: Laina Marrero MD Procedure: Colonoscopy Indications: High risk colon cancer surveillance: Personal history of colonic polyps Providers: Laina Marrero MD, Opal Dee RN Referring MD: Medicines: Propofol per Anesthesia Complications: No immediate complications. Procedure: After I obtained informed consent, the scope was passed under direct vision. Throughout the procedure, the patient's blood pressure, pulse, and oxygen saturations were monitored continuously. The [id number] was introduced through the anus and advanced to 5 cm into the ileum. The colonoscopy was performed without difficulty. The patient tolerated the procedure well. The quality of the bowel preparation was good. Findings: The perianal and digital rectal examinations were normal. The terminal ileum appeared normal. A 3 mm polyp was found in the hepatic flexure. The polyp was flat. The polyp was removed with a cold snare. Resection and retrieval were complete. The exam was otherwise without abnormality on direct and retroflexion views. Impression: - The examined portion of the ileum was normal. - One 3 mm polyp at the hepatic flexure, removed with a cold snare. Resected and retrieved. - The examination was otherwise normal on direct and retroflexion views. Recommendation: - Discharge patient to home. - Await pathology results. - Repeat colonoscopy for surveillance based on pathology results. Procedure Code(s): --- Professional --- 56963, Colonoscopy, flexible; with removal of tumor(s), polyp(s), or other lesion(s) by snare technique Diagnosis Code(s): --- Professional --- Z86.010, Personal history of colonic polyps K63.5, Polyp of colon CPT copyright 2019 [employer]. All rights reserved. The codes documented in this report are preliminary and upon workcell operator review may be revised to meet current compliance requirements. Laina Marrero MD 06/19/2021 11:44:02 AM This document has been electronically signed. Number of Addenda: 0 Note Initiated On: 06/19/2021 11:10 AM Endoscopy Report Laina Marrero MD ET GI PROCEDURE ORDERABLES Final Result * HIV 1/2 Ag/Ab 4th Generation (02/17/2018 9:01 AM CDT) HIV 1/2 AG/AB 4thGEN Negative (Non Reactive) [facility]GNR [facility] Comment:HIV-1 p24 Ag and HIV -1/HIV-2 Ab not detected. 02/17/2018 9:01 AM CDT 02/17/2018 9:07 AM CDT Narrative [facility] - 02/17/2018 3:57 PM CDT Performed at [facility], [address] [place] [address] us Nimesh Vera PA-C LAB_1 Final Resul t [facility] [phone] * (ABNORMAL) Lipid Panel and Direct LDL(If Needed) (02/17/2018 9:01 AM CDT) Hours Fasting 12 hours [facility] Cholesterol 103 0 - 199 mg/dl [facility] Triglyceride 65 0 - 149 mg/dl [facility] HDL 36(L) >40 mg/dl [facility] LDL, Calc. 54 0 - 129 mg/dl [facility] Non HDL Chol, Calc 67 0 - 159 mg/dl [facility] 02/17/2018 9:01 AM CDT 02/17/2018 9:06 AM CDT Narrative [facility] - 02/17/2018 3:43 PM CDT Performed at [facility], [address] [place] [address] Nimesh Vera PA-C LAB_1 Final Resul t Performing Organization Address City/[facility]/ZIP Co de Phone Number [facility] [phone] from Last 3 Months or Most Recently Relevant to Health Maintenance Insurance [facility] Care Teams Skoog Operator Relationship Specialty [place] [address] [place] [address] PCP - General Family Practice 10/18/18
--- OUTSIDE RECORDS SUMMARY | 2024-09-28 12:09 | XMS_ITS | Encounter Summary ---
Author Organization [facility] Address [address] [address] Care Team Providers Care Scientific Laboratory Supervisor Name Role Phone Jhoan Vasquez MD Primary Care Provider Encounter Details Date Type Department Care Team (Late st Contact Info) Description 04/02/2017 Correspondence [facility] [address] [place] [address] [place] [address] [place] [address] FMLA Social History Tobacco Use Types Packs/Day [...] on filedocumented in this encounter Care Teams Scientific Laboratory Supervisor Relationship Specialty [place] [address] [place], [place] [id number] PCP - General Family Practice 10/18/18 documented as of this encounter
--- OUTSIDE RECORDS SUMMARY | 2024-09-28 12:09 | XMS_ITS | Encounter Summary ---
Author Organization [facility] Address [address], [place] [address] Care Team Providers Care Certified Driver Examiner Name Role Phone Jhoan Vasquez MD Primary Care Provider Encounter Details Date Type Department Care Team (Latest Contact Info) Description 08/14/2016 Correspondence None No Primary/Referring, Phy NEW PATIENT Social History Tobacco Use Types Packs/Day Years Used Date Smoking Tobacco: Never Comments:quit smoking 2000 Alcohol Use [...] on filedocumented in this encounter Care Teams Certified Driver Examiner Relationship Specialty [place] [address] [place] [address] PCP - General Family Practice 10/18/18 documented as of this encounter
[2024-09-28 12:33] VITALS: BP 147/81; PULSE 90; RESP 18; TEMP 36.6; O2SAT 97; BMI 26.4
--- NOTE | 2024-09-28 13:28 | CRLHL7_ITS ---
For Patients: As a result of the Cures Act, medical imaging exams and procedure reports are released immediately into your electronic medical record. You may view this report before your referring provider. If you have questions, please contact your health care provider. Indication: Hospital bed fell on finger Technique: Left 3rd digit radiographs, three views Comparison: None. Findings: Bones: No acute fracture or dislocation.. Joint spaces: Unremarkable. Soft tissues: Soft tissue swelling of the 3rd digit. Impression: No acute fracture or dislocation. Soft tissue swelling of the 3rd digit. Dictated by Katrina Porter MD @ 09/28/2024 1:56:38 PM (Electronically Signed)
--- OUTSIDE RECORDS SUMMARY | 2024-09-28 13:53 | XMS_ITS | Encounter Summary ---
Author Organization [facility] Address [address] [place] [address] Care Team Providers Care Stripper Color Name Role Phone Jhoan Vasquez MD Primary Care Provider [phone] Encounter Details Date Type Department Care Team (Late st Contact Info) Description 08/13/2017 Correspondence External to External, [place] [address] [facility] Social History Tobacco Use Types Packs/Day Years [...] on filedocumented in this encounter Care Teams Stripper Color Relationship Specialty [place] [address] [place] [address] PCP - General Family Practice 10/18/18 documented as of this encounter
--- OUTSIDE RECORDS SUMMARY | 2024-09-28 13:53 | XMS_ITS | Clinical Summary ---
Author Organization [facility] Address [address] [place] [address] Care Team Providers Care Crop Farm Helper Name Role Phone Clinic, [facility] Primary Care Provider Allergies Active Allergy Reactions [...] on file Legal Sex Male 4:42 AM TRAFFIC MANAGER Gender Identity Not on file Sexual Orientation [...] 78 kg (172 lb) 07/30/2014 9:54 AM TRAFFIC MANAGER Height 177.8 cm (5' 10) 07/04/2014 8:41 AM TRAFFIC MANAGER Body Mass Index 24.68 07/04/2014 8:41 AM TRAFFIC MANAGER Plan of Treatment Not on file Insurance [facility] Care Teams Crop Farm Helper Relationship Specialty Start Date End Date Clinic, [facility] [address] [place] [address] PCP - General 02/11/18
--- OUTSIDE RECORDS SUMMARY | 2024-09-28 13:53 | XMS_ITS | Clinical Summary ---
Author Organization [facility] Address [address] [place] [address] Care Team Providers Care Production Lead Name Role Phone Jhoan Vasquez MD Primary Care Provider [phone] Source Comments You are receiving this document [...] for each transition of care or referral. [facility] All[facility] Active Allergy Reactions Criticality Noted Date [...] Miv Csl 3+ Yr (Injected) 08/20/2009 Influenza ([place] Only) (Flul aval Quad 0.5, 3+ yrs) 05/12/2012 Influenza IIV4 (Quadrivalent) 0.5mL (33972) 01/2016 Influenza, Unspecified Formulation 04/24/2016,,04/03/2009 Pfizer Monovalent [...] Comments Blood Pressure 134/89 06/19/2021 12:00 PM CIAIO COUNTER MOLDER Pulse 80 06/19/2021 12:00 PM CIAIO COUNTER MOLDER Temperature 36.4 C (97.5 F) 06/19/2021 11:46 AM CIAIO COUNTER MOLDER Respiratory Rate 16 06/19/2021 12:00 PM CIAIO COUNTER MOLDER Oxygen Saturation 100% 06/19/2021 12:00 PM CIAIO COUNTER MOLDER Inhaled Oxygen Concentration - - Weight 83.5 kg (184 lb) 06/19/2021 10:08 AM CIAIO COUNTER MOLDER Height 177.8 cm (5' 10) 06/19/2021 10:08 AM CIAIO COUNTER MOLDER Body Mass Index 26.4 06/19/2021 10:08 AM CIAIO COUNTER MOLDER Plan of Treatment Health Maintenance Due Date [...] COLON, SCREENING/DIAGNOST IC Routine 06/19/2021 11:10 AM CIAIO COUNTER MOLDER Personal history of colonic polyps HIV 1/2 AG/AB 4TH GEN Routine 02/17/2018 9:01 AM CDT Routine adult health maintenance LIPID PANEL & DIRECT LDL (IF NEEDED) Routine 02/17/2018 9:01 AM CDT Heart palpitations from Last 3 Months or Most Recently Relevant to Health Maintenance Results * Endoscopy, colon, diagnostic (06/19/2021 11:10 AM CIAIO COUNTER MOLDER) Anatomical Region Laterality Modality Other 06/19/2021 11:1 0 AM CIAIO COUNTER MOLDER Narrative 06/19/2021 11:10 AM CIAIO COUNTER MOLDER Patient Name: Syed Alejandra Procedure Date: 06/19/2021 [...] and oxygen saturations were monitored continuously. The [id number] was introduced through the anus and advanced [...] pathology results. Procedure Code(s): --- Professional --- 85250, Colonoscopy, flexible; with removal of tumor(s), polyp(s), or other lesion(s) by snare technique Diagnosis Code(s): --- Professional --- Z86.010, Personal history of colonic polyps K63.5, Polyp of colon CPT copyright 2019 [employer]. All rights reserved. The codes documented in this report are preliminary and upon cigar head piercer review may be revised to meet current [...] and oxygen saturations were monitored continuously. The [id number] was introduced through the anus and advanced [...] pathology results. Procedure Code(s): --- Professional --- 21980, Colonoscopy, flexible; with removal of tumor(s), polyp(s), or other lesion(s) by snare technique Diagnosis Code(s): --- Professional --- Z86.010, Personal history of colonic polyps K63.5, Polyp of colon CPT copyright 2019 [employer]. All rights reserved. The codes documented in this report are preliminary and upon cigar head piercer review may be revised to meet current compliance requirements. Laina Marrero MD 06/19/2021 11:44:02 AM This document has been electronically signed. Number of Addenda: 0 Note Initiated On: 06/19/2021 11:10 AM Endoscopy Report Laina Marrero MD ET GI PROCEDURE ORDERABLES Final Result * HIV 1/2 Ag/Ab 4th Generation (02/17/2018 9:01 AM CDT) HIV 1/2 AG/AB 4thGEN Negative (Non Reactive) NEGNR [facility] Comment:HIV-1 p24 Ag and HIV -1/HIV-2 Ab not detected. 02/17/2018 9:01 AM CDT 02/17/2018 9:07 AM CDT Narrative [facility] - 02/17/2018 3:57 PM CDT Performed at [facility], [address] [place] [address] [place] Nimesh Vera PA-C LAB_1 Final Resul t [facility] [phone] * (ABNORMAL) Lipid Panel and Direct LDL(If [...] - 02/17/2018 3:43 PM CDT Performed at [facility], [address] [place] [address] Nimesh Vera PA-C LAB_1 Final Resul t Performing Organization Address City/[facility]/ZIP Co de Phone Number [facility] [phone] from Last 3 Months or Most Recently Relevant to Health Maintenance Insurance [facility] Care Teams Production Lead Relationship Specialty [place] [address] [place] [address] PCP - General Family Practice 10/18/18
--- OUTSIDE RECORDS SUMMARY | 2024-09-28 13:53 | XMS_ITS | Encounter Summary ---
Author Organization [facility] Address [address] [place] [address] Care Team Providers Care Household Refrigeration Mechanic Name Role Phone Jhoan Vasquez MD Primary [...] on filedocumented in this encounter Care Teams Household Refrigeration Mechanic Relationship Specialty Start [place] [address] [place] [address] PCP - General Family Practice 10/18/18 documented as of this encounter
--- OUTSIDE RECORDS SUMMARY | 2024-09-28 13:53 | XMS_ITS | Clinical Summary ---
Author Organization [facility] Address [address] [place] [address] Care Team Providers Care Knuckler Name Role Phone Eboni Stapleton MD Primary Care Provider [phone] Allergies Active Allergy Reactions Criticality Noted Date [...] for Pain. 10 Tablet 4 1:11 PM OPHTHALMIC TECHNICIAN APPRENTICE 06/23/20 24 Active sennosides-docusate (SENOKOT S) (8.6-50 mg) tabletIndications:S /P hernia surgery Take 1 Tablet by mouth 2 times daily if needed for Constipation. 20 Tablet 4 1:11 PM OPHTHALMIC TECHNICIAN APPRENTICE 06/23/20 24 Active ibuprofen (ADVIL; MOTRIN) 600 mg tabletIndications:S /P hernia surgery Take 1 Tablet (600 mg) by mouth every 6 hours if needed for Pain. Maximum of 3200 mg in 24 hours. 30 Tablet 4 1:11 PM OPHTHALMIC TECHNICIAN APPRENTICE 06/23/20 24 Active acetaminophen (TYLENOL) 325 mg tabletIndications:S /P hernia surgery Take 2 Tablets (650 mg) by mouth every 6 hours. Max acetaminophen dose: 4000mg in 24 hrs. 30 Tablet 4 1:11 PM OPHTHALMIC TECHNICIAN APPRENTICE 06/23/20 24 Active Active Problems Problem Noted Date Diagnosed Date Bilateral inguinal hernia without obstruction or gangrene 06/23/2024 GERD (gastroesophageal reflux disease) 7 Hx of cholecystectomy 03/02/2017 Adenomatous polyp of colon 07/08/2016 Tear of medial meniscus of right knee 08/08/2015 Overview (08/08/2015): Initial surgery on Apr, 2015. Needs repear arthrosciopic surgery on 08/09/15. Dr Timi Bowman at [facility]. Encounters Date Type Department Care Team Description 09/13/2024 Telephone [facility] Surgery Clinic at [address] [address] Erendira Zimmer MD discuss letter 07/04/2024 11:45 AM OPHTHALMIC TECHNICIAN APPRENTICE Office Visit [facility] at [facility] [id number] [place] [id number] Erendira Zimmer MD Surgical Followup (SP 06/23 robotic bilateral inguinal hernia repair with mesh) 07/03/2024 Travel 06/30/2024 Orders Only [facility] Scanner 1 scan: (1-Ord) [facility], MULTIPLE RESULTS, 06/30/2024 06/30/2024 Telephone [facility] at [facility] [id number] [place] [id number] Erendira Zimmer MD post surgery concerns from Last 3 Months Immunizations Immunization Administration Dates Next Due COVID-19 vaccine ([employer] 30mcg/0.3mL) RAFAEL ZAMARRIPA 01/15/2021,12/25/2020 Hep B [...] PM CDT Legal Sex Male 7:08 AM OPHTHALMIC TECHNICIAN APPRENTICE Gender Identity Male 10/05/2021 6:40 PM CDT Sexual Orientation Straight 10/05/2021 6: 40 PM CDT 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 Not on file Not on file Not on file Obstetrics History Last Filed Vital Signs Vital Sign Reading Time Taken Comments Blood Pressure 136/78 07/04/2024 12:27 PM OPHTHALMIC TECHNICIAN APPRENTICE Pulse 106 07/04/2024 12:27 PM OPHTHALMIC TECHNICIAN APPRENTICE Temperature 37.1 C (98.8 F) 07/04/2024 11:52 AM OPHTHALMIC TECHNICIAN APPRENTICE Respiratory Rate 20 07/04/2024 11:52 AM OPHTHALMIC TECHNICIAN APPRENTICE Oxygen Saturation 97% 06/23/2024 12:45 PM OPHTHALMIC TECHNICIAN APPRENTICE Inhaled Oxygen Concentration - - Weight 84.4 kg (186 lb) 06/19/2024 9:02 AM OPHTHALMIC TECHNICIAN APPRENTICE Height 177.8 cm (5' 10) 06/13/2024 1:25 PM OPHTHALMIC TECHNICIAN APPRENTICE Body Mass Index 26.69 06/13/2024 1:25 PM OPHTHALMIC TECHNICIAN APPRENTICE Plan of Treatment Health Maintenance Due Date [...] through age 75 06/19/202606/19 (Completed outside of [facility]) Tetanus booster 02/18/2028 02/17/2018, 12/19, 12/25/2007 Lipids for age 45-75 03/30/2029 03/30/2024, 10/21/2022, 12/13/2020, Additional history exists Tdap Completed 02/17/2018 Pneumococcal series for age 6-49 Aged Out No longer eligible based on patient's age to complete this topic Medical Devices Implanted Type Area Station Mechanic Device Identifier Shelf Expiration Date Model / Serial / Lot Mesh Inguinal Lt [id number] 3-D Max Mid Xlg - [id number] Implanted:Qty: 1 on 06/23/2024 by Erendira Zimmer MD at [facility] Left: Inguinal [employer] 11/13/2028 [id number] / / [id number] Mesh Inguinal Rt [id number] 3-D Max Mid Xlg - [id number] Implanted:Qty: 1 on 06/23/2024 by Erendira Zimmer MD at [facility] Right: Inguinal [employer] 08/15/2028 [id number] / / [id number] Procedures Procedure Name Priority Date/Time Associated Diagnosis Comments SCAN-LABORATORY REPORT 06/30/2024 12:00 AM OPHTHALMIC TECHNICIAN APPRENTICE LIPID PANEL W REFLEX MEASURED LDL Routine 03/30/2024 2:39 PM CDT Family history of ASCVD from Last 3 Months or Most Recently Relevant to Health Maintenance Results * SCAN-LABORATORY REPORT (06/30/2024 12:00 AM OPHTHALMIC TECHNICIAN APPRENTICE) us Scanner OTHER Final Result * (ABNORMAL) LIPID PANEL W REFLEX MEASURED LDL (03/30/2024 2:39 PM CDT) CHOLESTEROL,TOTAL 134 100 - 199 mg/dL 03/31/2024 4:19 AM CDT [facility] Comment: Cholesterol, Total Reference Ranges Desirable <200 mg/dL Borderline 200-239 mg/dL High >=240 mg/dL TRIGLYCERIDES 85 <150 mg/dL 03/31/2024 4:19 AM CDT [facility] HDL CHOLESTEROL 38(L) >40 mg/dL 4:19 AM CDT [facility] NON-HDL CHOLESTEROL 96 <145 mg/dl 03/31/2024 4:19 AM CDT [facility] CHOL/HDL RATIO 3.53 <4.50 03/31/2024 4:19 AM CDT [facility] LDL CHOLESTEROL 79 <=130 mg/dL 03/31/2024 4:19 AM CDT [facility] VLDL CHOLESTEROL 17 <=30 mg/dL 03/31/2024 4:19 AM CDT [facility] PROVIDER ORDERED STATUS RANDOM 03/31/2024 4:19 AM T [facility] Blood BLOOD SPECIMEN / Unknown Venipuncture / Unknown 03/30/2024 2:39 PM CDT 03/30/2024 2:39 PM CDT us Eboni Stapleton MD CHEMISTRY Final Resul t [facility] [address] [place] [address], from Last 3 Months or Most Recently Relevant to Health Maintenance Insurance [facility] [employer] COMP Advance Directives * Full Code (Latest Code Status on File) Date Activated Date Inactivated Comments 06/23/2024 10:15 AM 06/23/2024 3:43 PM Question Answer Comments Code Status Discussion: Reviewed Preferences Care Teams Knuckler Relationship Specialty Start Date End Date Eboni Stapleton MD [address] [place] [address] PCP - General Family Practice 12/13/20
--- OUTSIDE RECORDS SUMMARY | 2024-09-28 13:53 | XMS_ITS | Encounter Summary ---
Author Organization [facility] Address [address] [address] Care Team Providers Care Insurance Adjuster Name Role Phone Jhoan Vasquez MD Primary Care Provider [phone] Encounter Details Date Type Department Care Team [...] on filedocumented in this encounter Care Teams Insurance Adjuster Relationship Specialty [place] [address] [place] [address] PCP - General Family Practice 10/18/18 documented as of this encounter
--- OUTSIDE RECORDS SUMMARY | 2024-09-28 13:53 | XMS_ITS | Encounter Summary ---
Author Organization [facility] Address [address] [place] [address] Care Team Providers Care Fudger Name Role Phone Jhoan Vasquez MD Primary Care Provider Encounter Details Date Type Department Care Team (Late st Contact Info) Description 03/11/2017 Correspondence [facility] Radiology [address] [place] [address] Radiology, Provider MRI SAFETY SHEET AND COMPATIBILITY [...] on filedocumented in this encounter Care Teams Fudger Relationship Specialty [place] [address] [place] [address] PCP - General Family Practice 10/18/18 documented as of this encounter
--- OUTSIDE RECORDS SUMMARY | 2024-09-28 13:53 | XMS_ITS | Encounter Summary ---
Author Organization [facility] Address [address], [place] [address] Care Team Providers Care Shirt Trimmer Name Role Phone Jhoan Vasquez MD Primary Care Provider Encounter Details Date Type Department Care Team (Late st Contact Info) Description 04/02/2017 Correspondence [facility] [address] [place] [address] [place] [address] [place] [address] FMLA Social History Tobacco Use Types Packs/Day [...] on filedocumented in this encounter Care Teams Shirt Trimmer Relationship Specialty [place] [address] [place], [place] [id number] PCP - General Family Practice 10/18/18 documented as of this encounter
--- OUTSIDE RECORDS SUMMARY | 2024-09-28 13:53 | XMS_ITS | Encounter Summary ---
Author Organization [facility] Address [address], [place] [address] Care Team Providers Care Weed Controller Name Role Phone Jhoan Vasquez MD Primary Care Provider Encounter Details Date Type Department Care Team (Late st Contact Info) Description 11/05/2017 Correspondence [facility] [address] [place] [address] [place] [address] [place] [address] FMLA Social History Tobacco Use Types Packs/Day [...] on filedocumented in this encounter Care Teams Weed Controller Relationship Specialty [place] [address] [place], [place] [id number] PCP - General Family Practice 10/18/18 documented as of this encounter
--- NOTE | 2024-09-28 14:32 | ED.UPPEXIN ---
HPI - Extremity Injury (Upper) General Date Seen: 09/28/24 Chief Complaint: Extremity Pain/Injury, Upper Stated Complaint: Lt middle fingernail left skin Time Seen by Provider: 09/28/24 12:54 Source: patient Mode of arrival: ambulatory Limitations: no limitations History of Present Illness HPI narrative: Patient is a 44-year-old male presenting to emergency department injury to his left middle finger. 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 Says pain is tolerable at this time. Did state a nurse at senior care clean and wrapped his finger and gauze. Denies any other injuries. Does note the back portion of the nail is sticking through his skin. Related Data Home Medications ?Medication ?Instructions ?Recorded ?Confirmed epinephrine 0.3 mg/0.3 mL IM 06/30/24 injection, auto-injector Previous Rx's ?Medication ?Instructions ?Recorded ondansetron 4 mg disintegrating 4 mg PO Q6H PRN nausea and 09/08/23 tablet vomiting #30 tabs Allergies Allergy/AdvReac Type Severity Reaction Status Date / Time Iodinated Contrast Media Allergy Unknown Verified 06/30/24 16:40 shellfish Allergy Severe Uncoded 09/08/23 21:37 PFSH PFSH Social History Smoking Status: Never smoker Non-prescribed substance use: denies use Exam Narrative: Exam Narrative: Const: Well-nourished, Well-developed, in mild distress Eyes: PERRL, no conjunctival injection, and symmetrical lids HENT: Atraumatic external nose and ears. Moist mucous membranes. MSK:Extremities w/o deformity, Normal Active ROM, crack and nail bed with the most proximal portion of the lunula partially exposed. Skin: Warm, Dry. No rashes or lesions. Neuro: Normal Muscle tone, No focal neurological deficits. Psych: Awake, Alert, & Oriented x3. Appropriate mood and affect. Const: Vital Signs, click to edit/add: Vital Signs - 24 hr 09/28/24 12:33 Temperature 98 F Pulse Rate [Pulse Oximeter] 90 Respiratory Rate 18 Blood Pressure [Ri ght Upper Arm] 147/81 H Pulse Oximetry 97 Oxygen Delivery Me thod Room Air Course Vital Signs Vital signs: Initial Vital Signs Temperature 98 F 09/28/24 12:33 Temperature Source Temporal Artery Scan 09/28/24 12:33 Pulse Rate 90 09/28/24 12:33 Respiratory Rate 18 09/28/24 12:33 Blood Pressure 147/81 H 09/28/24 12:33 Blood Pressure Mean 103 09/28/24 12:33 Pulse Oximetry 97 09/28/24 12:33 Oxygen Delivery Method Room Air 09/28/24 12:33 Vital Signs Temperature 98 F 09/28/24 12:33 Pulse Rate 90 09/28/24 12:33 Respiratory Rate 18 09/28/24 12:33 Blood Pressure 147/81 H 09/28/24 12:33 Pulse Oximetry 97 09/28/24 12:33 Oxygen Delivery Method Room Air 09/28/24 12:33 Temperature 98 F 09/28/24 12:33 Pulse Rate 90 09/28/24 12:33 Respiratory Rate 18 09/28/24 12:33 Blood Pressure 147/81 H 09/28/24 12:33 Pulse Oximetry 97 09/28/24 12:33 Oxygen Delivery Method Room Air 09/28/24 12:33 MDM - Extremity Injury (Upper) MDM Narrative Medical decision making narrative: Patient is a 44-year-old male presenting for injury to his left distal middle finger. There is apparent crack in the nail bed with part of the proximal nail exposed. Also part of the eponychium was injured. Digital nerve block with 4 mL of lidocaine was done. I was able to then better evaluate the nail. I removed the a avulsed skin that was still on top of the fractured nail bed. Was able to but the portion of the exposed nail back into the eponychium and is in place now. The rest of the nail is intact. Patient will be discharged. No signs of a subungual hematoma. X-ray was done and shows no acute fractures. Imaging Data X-ray left middle finger: Attestation: I have reviewed the pertinent imaging results. Radiologist's impression: No acute fracture or dislocation. Soft tissue swelling of the 3rd digit. Dictated by Katrina Porter MD @ 09/28/2024 1:56:38 PM Discharge Plan Discharge Clinical Impression: Nail avulsion Patient Disposition: Home, Self-Care Condition: Stable Additional Instructions: Keep the area covered for the next few days. Topical antibiotics are not necessary. Return if you start showing signs of infection. Your new nail should start growing over the next few weeks to months. Return for new or worsening symptoms. Prescriptions: No Action ondansetron 4 mg tablet,disintegrating 4 mg PO Q6H PRN (Reason: nausea and vomiting) Qty: 30 0RF epinephrine 0.3 mg/0.3 mL auto-injector IM Follow Up/Referrals: Provider,Not a Local [Primary Care Provider] - Stand Alone Forms: Sociall Info Instructions
== END 2024-09-28 15:31 | disposition home or self-care (01) ==
PROVIDERS: Emergency Provider Student in an Organized Health Care Education/Training Program
DX: S61.303A Unspecified open wound of left middle finger with damage to nail, initial encounter (principal); W23.0XXA Caught, crushed, jammed, or pinched between moving objects, initial encounter; Y92.122 Bedroom in nursing home as the place of occurrence of the external cause
CPT/HCPCS: 11730; 73140; 99283